=== PATIENT | female | born 1955 | race Caucasian/White ===

== ENCOUNTER → 2019-06-08 | Outpatient (CLI) | payer OTHER ==
[~2019-06-08] MED LIST: ASPIRIN325 PO; ATENOLOL-CHLOR1 EACH PO; BENTYL 10 MG CA10 M1 PO; COLACE100 MG PO; GABAPENTIN600 M1 PO; KLOR-CON M2020 MEQ PO; METAMUCIL PAC1 UDPKT PO; NITROFURANTOIN50 M2 PO; ONE-A-DAY WOMENS PO; OXYCODONE HCL 55 MG PO; PIOGLITAZONE-M1 EACH PO; PRILOSEC 20 MG20 MG PO; PRILOSEC20 MG PO; PROZAC20 MG PO; SENOKOT-S1 TA1 PO; STOOL SOFTENER1 EAC2 PO; SUPER B COMPLE150 MG PO; TENORETIC 50 T1 EACH PO; TUMS PO; XARELTO15 MG PO
[2019-06-08 12:30] LABS: CREATININE 0.9 mg/dL (0.6-1.3)
== END ==
LOC: M.LAB 05-23 09:30 → M.CT 05-23 09:30 → M.LAB 11:27 → M.CT 13:00
PROVIDERS: Internal Medicine Gastroenterology
DX: K76.0 Fatty (change of) liver, not elsewhere classified (principal); K57.30 Diverticulosis of large intestine without perforation or abscess without bleeding; M54.9 Dorsalgia, unspecified; Z90.710 Acquired absence of both cervix and uterus